=== PATIENT | female | born 1990 | race African-American/Black ===

== ENCOUNTER 2019-03-01 19:05 | Emergency (ER) | payer MEDICAID ==
[~2019-03-01] VITALS: Ht 154.9 cm; Wt 61.2 kg
[2019-03-01] MEDS ORDERED: NKM (19:16)
--- NOTE | 2019-03-01 19:37 | NUR ---
ED Nurse Note: pt came to ed from home c/o L arm tingling and chest pain for 1 week. per pt she has taken ASA 81 mg but it did not help
[2019-03-01 19:40] VITALS: BP 133/86
--- NOTE | 2019-03-01 19:52 | Emergency Room Report ---
History of Present Illness General Chief Complaint: Chest Pain Source: Patient Present Illness HPI This is a 28-year-old female who is otherwise healthy, complains of intermittent left-sided chest pain that has been going on for several days. Exacerbated by exertion. By rest. Exacerbated by movement as well. She denies any shortness of breath. She denies any nausea or vomiting or diaphoresis. She describes as a dull pain that is pressure like in sensation Allergies: Coded Allergies: No Known Allergies (Unverified , 03/01/19) Patient History Past Medical History: none Past Surgical History: none Pertinent Family History: none Nursing Documentation-[facility] Past Medical History: No Stated History Review of Systems All Other Systems: negative except mentioned in HPI Physical Exam Vital Signs Date Time Temp Pulse Resp B/P (MAP) Pulse Ox O2 Delivery O2 Flow Rate FiO2 03/01/19 19:13 99.1 81 16 133/86 95 Room Air General Appearance: well appearing, no apparent distress Head: normocephalic, atraumatic ENT: hearing grossly normal, normal voice Neck: full range of motion, supple Respiratory: no respiratory distress, speaking full sentences Cardiovascular #1: normal inspection, regular rate, rhythm, no JVD, no murmur, no rub Gastrointestinal: normal inspection, non tender, soft Musculoskeletal: no calf tenderness Neurologic: alert, normal gait Psychiatric: normal inspection, mood/affect normal Skin: no rash Medical Decision Making Diagnostic Impression: Primary Impression: Chest pain ER Course Patient was emergently seen and evaluated. Multiple bedside evaluation was done. Patient is nontoxic-appearing. No other associated symptoms. The patient has no tachypnea, tachycardia, pulmonary embolism. I pretest probability was very low. I do not suspect that the patient has a pulmonary embolism. EKG was normal. Blood work showed reviewed. My suspicion is that there may be some underlying anxiety. We will start the patient on Xanax which may offer some relief. And she should return sooner if is any change in symptoms or worsening symptoms. Laboratory Tests Test 03/01/19 19:50 White Blood Count 8.0 K/UL (4.8-10.8) Red Blood Count 5.25 M/UL (4.20-5.40) Hemoglobin 13.6 G/DL (12.0-16.0) Hematocrit 41.1 % (37.0-47.0) Mean Corpuscular Volume 78 FL (80-99) L Mean Corpuscular Hemoglobin 25.9 PG (27.0-31.0) L Mean Corpuscular Hemoglobin Concent 33.1 G/DL (32.0-36.0) Red Cell Distribution Width 12.3 % (11.6-14.8) Platelet Count 279 K/UL (150-450) Mean Platelet Volume 5.5 FL (6.5-10.1) L Neutrophils (%) (Auto) 53.0 % (45.0-75.0) Lymphocytes (%) (Auto) 35.2 % (20.0-45.0) Monocytes (%) (Auto) 7.9 % (1.0-10.0) Eosinophils (%) (Auto) 2.6 % (0.0-3.0) Basophils (%) (Auto) 1.3 % (0.0-2.0) D-Dimer 0.25 mg/L FEU (0.00-0.49) Sodium Level 139 MMOL/L (136-145) Potassium Level 3.4 MMOL/L (3.5-5.1) L Chloride Level 102 MMOL/L (98-107) Carbon Dioxide Level 26 MMOL/L (21-32) Anion Gap 11 mmol/L (5-15) Blood Urea Nitrogen 12 mg/dL (7-18) Creatinine 1.0 MG/DL (0.55-1.30) Estimate Glomerular Filtration Rate > 60 mL/min (>60) Glucose Level 89 MG/DL (74-106) Calcium Level 9.2 MG/DL (8.5-10.1) Total Bilirubin 0.9 MG/DL (0.2-1.0) Aspartate Amino Transferase (AST) 20 U/L (15-37) Alanine Aminotransferase (ALT) 20 U/L (12-78) Alkaline Phosphatase 61 U/L (46-116) Troponin I 0.000 ng/mL (0.000-0.056) Total Protein 7.9 G/DL (6.4-8.2) Albumin 4.1 G/DL (3.4-5.0) Globulin 3.8 g/dL Albumin/Globulin Ratio 1.1 (1.0-2.7) Human Chorionic Gonadotropin, Quant < 1 mIU/mL (1-6) L EKG Diagnostic Results EKG Time: 19:52 Rate: normal Rhythm: NSR ST Segments: no acute changes Last Vital Signs Date Time Temp Pulse Resp B/P (MAP) Pulse Ox O2 Delivery O2 Flow Rate FiO2 03/01/19 19:40 99.1 96 16 133/86 95 Room Air Status: improved Disposition: HOME, SELF-CARE Scripts Alprazolam* (XANAX*) 0.25 Mg Tablet 0.25 MG ORAL BID PRN for For Anxiety, #10 TAB Prov: JOAQUIM GROVER 03/01/19 Patient Instructions: Nonspecific Chest Pain JOAQUIM GROVER Mar 01, 2019 19:52
[2019-03-01 20:01] LABS: BASOPHILS % (AUTO) 1.3 % (0.0-2.0); EOSINOPHILS % (AUTO) 2.6 % (0.0-3.0); HEMATOCRIT 41.1 % (37.0-47.0); HEMOGLOBIN 13.6 G/DL (12.0-16.0); LYMPHOCYTES % (AUTO) 35.2 % (20.0-45.0); MEAN CORPUSCULAR VOLUME 78 FL (80-99); MONOCYTES % (AUTO) 7.9 % (1.0-10.0); PLATELET COUNT 279 K/UL (150-450); RED BLOOD COUNT 5.25 M/UL (4.20-5.40); RED CELL DISTRIBUTION WIDTH 12.3 % (11.6-14.8)
--- NOTE | 2019-03-01 20:09 | NUR ---
ED Nurse Note: pt left for xray
[2019-03-01 20:12] LABS: ANION GAP 11 mmol/L (5-15); BLOOD UREA NITROGEN 12 mg/dL (7-18); CALCIUM 9.2 MG/DL (8.5-10.1); CARBON DIOXIDE 26 MMOL/L (21-32); CHLORIDE 102 MMOL/L (98-107); POTASSIUM 3.4 MMOL/L (3.5-5.1); SODIUM 139 MMOL/L (136-145)
[2019-03-01 20:17] LABS: ALANINE AMINOTRANSFERASE 20 U/L (12-78); ALBUMIN 4.1 G/DL (3.4-5.0); ALBUMIN/GLOBULIN RATIO 1.1 (1.0-2.7); ALKALINE PHOSPHATASE 61 U/L (46-116); ASPARTATE AMINO TRANSFERASE 20 U/L (15-37); BILIRUBIN,TOTAL 0.9 MG/DL (0.2-1.0)
[2019-03-01 20:57] VITALS: BP 122/87
[2019-03-01] MEDS ORDERED: ALPRAZOLAM0.25 MG ORAL (21:13)
--- NOTE | 2019-03-01 21:26 | NUR ---
ER DISCHARGE NOTE: Patient is cleared to be discharged per ERMD, pt is aox4, on room air, with stable vital signs. pt was given dc and prescription instructions, pt was able to verbalize understanding, pt id band and iv site removed without complications. pt is able to ambulate with steady gait. pt took all belongings.
[2019-03-01 21:33] VITALS: BP 122/87
--- NOTE | 2019-03-02 10:43 | Diagnostic Imaging Report ---
Indication: Chest pain Technique: 2 views of the chest Comparison: None Findings: Lungs and pleural spaces are clear. The heart size is normal. The bones are unremarkable. No significant interim change. Impression: Negative
== END 2019-03-01 21:26 | disposition home or self-care (01) ==
LOC: EMR 19:56
DX: R07.9 Chest pain, unspecified (principal)
CPT/HCPCS: 36415; 71046; 80053; 84484; 84702; 85025; 85379; 99283

== ENCOUNTER 2019-09-22 19:56 | Emergency (ER) | payer MEDICAID ==
[~2019-09-22] VITALS: Ht 157.5 cm; Wt 64.9 kg
[~2019-09-22 19:56] MED LIST: ALPRAZOLAM0.25 MG ORAL; NKM
[2019-09-22 20:03] VITALS: BP 114/71
--- NOTE | 2019-09-22 20:03 | NUR ---
ED Nurse Note: Patient walked in to ER c/o no bowel movement x 5 days S/P breast augmentation last 09/20/19. As per patient she is taking norco and tried to take OTC medications for constipation. Afebrile. Denies nausea and vomiting.
--- NOTE | 2019-09-22 20:20 | NUR ---
ED Nurse Note: IV line established. Blood and urine collected and sent to lab.
--- NOTE | 2019-09-22 20:20 | Emergency Room Report ---
History of Present Illness General Chief Complaint: Constipation Source: Patient Present Illness HPI Disclaimer: Please note that this report is being documented using [employer] technology. This can lead to erroneous entry secondary to incorrect interpretation by the dictating instrument. HPI: 28-year-old female presents for evaluation of constipation. The patient had a breast augmentation surgery at a different hospital approximately 5 days ago. She was discharged with narcotic pain medication but no bowel regimen. She says she was doubling up on her narcotic pain medications due to significant pain. She states she has not had a bowel movement in 5 days and has not passed gas in 4 days. Continues to pass urine without difficulty. Denies vomiting but reports some nausea and increased belching. Denies fevers, chills, chest pain. Otherwise wounds are healing well. No intra-abdominal surgeries but she has had an abdominoplasty. She has used milk of magnesia, MiraLAX, docusate and a fleets enema at home without significant improvement. PMH: Denies PSH: Abdominoplasty, breast augmentation Allergies: Denies Social Hx: Denies drug or alcohol abuse Allergies: Coded Allergies: No Known Allergies (Unverified , 09/22/19) Patient History Last Menstrual Period: IUD Now: No Nursing Documentation-PMH Past Medical History: No Stated History Review of Systems All Other Systems: negative except mentioned in HPI Physical Exam Vital Signs Date Time Temp Pulse Resp B/P (MAP) Pulse Ox O2 Delivery O2 Flow Rate FiO2 09/22/19 20:00 98.8 121 18 114/71 (85) 98 Room Air General: Awake and alert, no acute distress HEENT: NC/AT. EOMI. Chest wall: Surgical scars are clean dry and intact. Cardiovascular: Tachycardic. S1 and S2 normal. No murmur appreciated Resp: Normal work of breathing. No cough, wheezing or crackles appreciated Abdomen: Abdomen is soft, moderately distended. Tender to palpation particularly in the upper quadrants in the periumbilical region. Less tenderness in the lower quadrants. Skin: Intact. No abrasions, laceration or rash over the exposed skin MSK: Normal tone and bulk. Moving all extremities. No obvious deformity. Neuro: Awake and alert. Mentating appropriately. Medical Decision Making Diagnostic Impression: Primary Impression: Ileus ER Course 28-year-old female presents for evaluation of severe constipation now no longer passing gas for the past 4 days 5 days after a surgery. Biggest concern at this time is for postsurgical ileus versus obstruction versus electrolyte abnormality versus volvulus versus impaction. Will draw labs and obtain x-rays of the abdomen. Laboratory Tests Test 09/22/19 20:24 White Blood Count 9.8 K/UL (4.8-10.8) Red Blood Count 5.40 M/UL (4.20-5.40) Hemoglobin 14.0 G/DL (12.0-16.0) Hematocrit 42.2 % (37.0-47.0) Mean Corpuscular Volume 78 FL (80-99) L Mean Corpuscular Hemoglobin 25.9 PG (27.0-31.0) L Mean Corpuscular Hemoglobin Concent 33.1 G/DL (32.0-36.0) Red Cell Distribution Width 10.9 % (11.6-14.8) L Platelet Count 273 K/UL (150-450) Mean Platelet Volume 6.3 FL (6.5-10.1) L Neutrophils (%) (Auto) 75.5 % (45.0-75.0) H Lymphocytes (%) (Auto) 12.5 % (20.0-45.0) L Monocytes (%) (Auto) 9.0 % (1.0-10.0) Eosinophils (%) (Auto) 2.4 % (0.0-3.0) Basophils (%) (Auto) 0.6 % (0.0-2.0) Sodium Level 140 MMOL/L (136-145) Potassium Level 3.9 MMOL/L (3.5-5.1) Chloride Level 103 MMOL/L (98-107) Carbon Dioxide Level 28 MMOL/L (21-32) Anion Gap 10 mmol/L (5-15) Blood Urea Nitrogen 8 mg/dL (7-18) Creatinine 0.9 MG/DL (0.55-1.30) Estimate Glomerular Filtration Rate > 60 mL/min (>60) Glucose Level 90 MG/DL (74-106) Calcium Level 9.3 MG/DL (8.5-10.1) Total Bilirubin Pending Aspartate Amino Transferase (AST) Pending Alanine Aminotransferase (ALT) Pending Alkaline Phosphatase Pending Total Protein Pending Albumin Pending Globulin Pending Other X-Ray Diagnostic Results Other X-Ray Diagnostic Results : X-Ray ordered: Abdominal # of Views/Limited Vs Complete: 1 View Indication: Pain EP Interpretation: Yes Interpretation: other - Dilated loops of small bowel. Significant stool in the colon Impression: Other - Possible ileus versus impaction Electronically Signed by: Electronically signed by Dr. Navin Carl Reevaluation Time: 20:58 Last Vital Signs Date Time Temp Pulse Resp B/P (MAP) Pulse Ox O2 Delivery O2 Flow Rate FiO2 09/22/19 20:00 98.8 121 18 114/71 (85) 98 Room Air Reevaluation Impression X-rays show some dilated loops of small bowel which may represent obstruction versus early ileus. There is also significant stool in the colon. Will obtain a fleets enema to get the patient to have a bowel movement and if successful can follow-up as an outpatient with her surgeon at her already scheduled appointment in 2 days. If not can advance work-up as needed. Labs are within normal limits. Patient was signed out to Dr. Sheehan pending reevaluation after enema. Disposition: HOME, SELF-CARE Condition: Stable Navin Carl MD Sep 22, 2019 20:20
--- NOTE | 2019-09-22 20:32 | NUR ---
ED Nurse Note: Pt taken for Xray.
--- NOTE | 2019-09-22 20:41 | NUR ---
ED Nurse Note: Pt came back from Xray.
[2019-09-22 20:43] LABS: BASOPHILS % (AUTO) 0.6 % (0.0-2.0); EOSINOPHILS % (AUTO) 2.4 % (0.0-3.0); HEMATOCRIT 42.2 % (37.0-47.0); LYMPHOCYTES % (AUTO) 12.5 % (20.0-45.0); MEAN CORPUSCULAR VOLUME 78 FL (80-99); NEUTROPHILS % (AUTO) 75.5 % (45.0-75.0); PLATELET COUNT 273 K/UL (150-450); RED CELL DISTRIBUTION WIDTH 10.9 % (11.6-14.8); WHITE BLOOD COUNT 9.8 K/UL (4.8-10.8)
--- NOTE | 2019-09-22 20:50 | Diagnostic Imaging Report ---
EXAM: XR Abdomen, 2 Views CLINICAL HISTORY: ABD DIST TECHNIQUE: Frontal view of the abdomen pelvis with upright view of the abdomen. COMPARISON: No relevant prior studies available. FINDINGS: Intraperitoneal space: No free air. Gastrointestinal tract: Mildly prominent loops of small bowel within the mid abdomen with multiple fluid levels. Prominent gastric bubble versus gas filled colon in the left upper quadrant. Organs: IUD in the uterus. Bones joints: Unremarkable. IMPRESSION: Mildly prominent loops of small bowel within the mid abdomen with air fluid levels. If there is concern for obstruction consider CT.
[2019-09-22 20:54] LABS: ANION GAP 10 mmol/L (5-15); BLOOD UREA NITROGEN 8 mg/dL (7-18); CALCIUM 9.3 MG/DL (8.5-10.1); CARBON DIOXIDE 28 MMOL/L (21-32); CHLORIDE 103 MMOL/L (98-107); CREATININE 0.9 MG/DL (0.55-1.30); POTASSIUM 3.9 MMOL/L (3.5-5.1); SODIUM 140 MMOL/L (136-145)
[2019-09-22 21:00] LABS: ALANINE AMINOTRANSFERASE 25 U/L (12-78); ALBUMIN 3.9 G/DL (3.4-5.0); ALBUMIN/GLOBULIN RATIO 0.9 (1.0-2.7); ALKALINE PHOSPHATASE 59 U/L (46-116); ASPARTATE AMINO TRANSFERASE 40 U/L (15-37); BILIRUBIN,TOTAL 0.8 MG/DL (0.2-1.0)
[2019-09-22] MEDS ORDERED: Fleet's Enema 133ml RECTAL ONE (21:00)
[2019-09-22 22:10] VITALS: BP 121/75
--- NOTE | 2019-09-22 22:10 | NUR ---
ED Nurse Note: Pt cleared by ERMD for discharge. DC instructions was given and explained to pt and verbalized understanding of teachings. All medical deviecs such as ID band removed. Pt is AAO x4, ambulatory and left with all personal belongings. Accompanied by her .
== END 2019-09-22 22:10 | disposition home or self-care (01) ==
LOC: EMR 20:34
DX: K56.7 Ileus, unspecified (principal); Z98.82 Breast implant status
CPT/HCPCS: 36415; 74018; 80053; 85025; Z7502; 99284

== ENCOUNTER 2020-09-09 08:07 | Emergency (ER) | payer MEDICAID, OTHER ==
[~2020-09-09] VITALS: Ht 154.9 cm; Wt 65.8 kg
[~2020-09-09 08:07] MED LIST changes: +AFRIN NASAL SPR30 ML NASAL; +ALBUTEROL SULF8.5 GM INH; +CHLOR-TRIMETON4 MG PO; +GUAIFENESIN-CO118 M1 ORAL; +IBUPROFEN600 MG ORAL
[2020-09-09 08:33] VITALS: BP 112/77
--- NOTE | 2020-09-09 08:34 | NUR ---
ED Nurse Note:pt. came with c/o sore throat no fever
--- NOTE | 2020-09-09 08:35 | Emergency Room Report ---
History of Present Illness General Chief Complaint: Sore Throat Source: Patient Present Illness HPI Disclaimer: Please note that this report is being documented using [employer] technology. This can lead to erroneous entry secondary to incorrect interpretation by the dictating instrument. HPI: 29-year-old female presents with sore throat. She states she has had a sore throat for the past 4 days or so. She was exposed to a sick contact in her daughter. She denies any fevers nausea vomiting or diarrhea. Pain is 8 out of 10 and worse with swallowing. She has been tolerating oral intake. Patient also complained of intermittent urinary frequency. PMH: Patient denies any medical history Allergies: Coded Allergies: No Known Allergies (Unverified , 09/22/19) COVID-19 Screening Contact w/high risk pt: No Experienced COVID-19 symptoms?: No COVID-19 Testing performed [employer]GEANT: No Patient History Last Menstrual Period: IUD Reviewed Nursing Documentation: PMH: Agreed; PSxH: Agreed Nursing Documentation-PMH Past Medical History: No Stated History Review of Systems All Other Systems: negative except mentioned in HPI Physical Exam Vital Signs Date Time Temp Pulse Resp B/P (MAP) Pulse Ox O2 Delivery O2 Flow Rate FiO2 09/09/20 08:10 97.9 86 16 112/77 (89) 100 Room Air Sp02 EP Interpretation: reviewed, normal General Appearance: well appearing, no apparent distress Head: normocephalic, atraumatic Eyes: bilateral eye PERRL, bilateral eye EOMI ENT: hearing grossly normal, moist mucus membranes, tonsillar exudate - Tonsillar exudates noted bilaterally Neck: full range of motion, supple, other - Anterior cervical adenopathy noted Respiratory: lungs clear, normal breath sounds, no rhonchi, no respiratory distress, no retraction, no wheezing Cardiovascular #1: normal peripheral pulses, regular rate, rhythm, no murmur Gastrointestinal: non tender, soft, non-distended, no guarding, other - No splenomegaly noted Neurologic: alert, oriented x3, no focal defects Skin: normal color, warm/dry Medical Decision Making Diagnostic Impression: Primary Impression: Acute pharyngitis ER Course MDM: Differential included viral pharyngitis strep pharyngitis mononucleosis, UTI to name a few Clinical course-urinalysis was sent. Patient did have bilateral exudates noted, adenopathy. She also reported a dry cough but due to her exudates with adenopathy I will treat for presumed strep. No splenomegaly noted. Does have sick contacts in her daughter. Patient complained of intermittent urinary symptoms so urinalysis was sent. Urinalysis with 1+ leukocytes squamous cells and bacteria. Possibly contaminated specimen however patient did have intermittent symptoms. I plan to treat her pharyngitis with Keflex which will also cover possible UTI. She was nontoxic stable for discharge. Labs - Laboratory Tests Test 09/09/20 08:10 Urine Color Yellow Urine Appearance Slightly cloudy Urine pH 6.5 (4.5-8.0) Urine Specific [place] 1.010 (1.005-1.035) Urine Protein Negative (NEGATIVE) Urine Glucose (UA) Negative (NEGATIVE) Urine Ketones Negative (NEGATIVE) Urine Blood Negative (NEGATIVE) Urine Nitrite Negative (NEGATIVE) Urine Bilirubin Negative (NEGATIVE) Urine Urobilinogen 1 MG/DL (0.0-1.0) H Urine Leukocyte Esterase 1+ (NEGATIVE) H Urine RBC 0-2 /HPF (0 - 2) Urine WBC 0-2 /HPF (0 - 2) Urine Squamous Epithelial Cells Many /LPF (NONE/OCC) H Urine Bacteria Few /HPF (NONE) Last Vital Signs Date Time Temp Pulse Resp B/P (MAP) Pulse Ox O2 Delivery O2 Flow Rate FiO2 09/09/20 08:10 97.9 86 16 112/77 (89) 100 Room Air Disposition: HOME, SELF-CARE Condition: Stable Scripts Acetaminophen* (TYLENOL EXTRA STRENGTH*) 500 Mg Tablet 500 MG ORAL Q8H PRN for Prn Headache/Temp > 101, #30 TAB 0 Refills Prov: Cyril Hu M.D. 09/09/20 Cephalexin* (KEFLEX*) 500 Mg Capsule 500 MG ORAL EVERY 8 HOURS, #21 CAP 0 Refills Prov: Cyril Hu M.D. 09/09/20 Cyril Hu M.D. Sep 09, 2020 08:35
[2020-09-09 08:39] LABS: APPEARANCE,URINE SLIGHTLY CLOUDY; BILIRUBIN, URINE NEGATIVE (NEGATIVE); GLUCOSE, URINE (UA) NEGATIVE (NEGATIVE); KETONES,URINE NEGATIVE (NEGATIVE); LEUKOCYTE ESTERASE ,URINE 1+ (NEGATIVE); NITRITE,URINE NEGATIVE (NEGATIVE); PH,URINE 6.5 (4.5-8.0); PROTEIN,URINE NEGATIVE (NEGATIVE); UROBILINOGEN,URINE 1 MG/DL (0.0-1.0)
[2020-09-09 08:43] LABS: COLOR,URINE YELLOW
[2020-09-09] MEDS ORDERED: TYLENOL EXTRA500 MG ORAL (08:49)
[2020-09-09] MEDS ORDERED: CEPHALEXIN500 MG ORAL (08:49)
[2020-09-09 08:54] VITALS: BP 112/77
--- NOTE | 2020-09-09 08:55 | NUR ---
ED Nurse Note: Pt cleared by health care Provider for discharge. DC instructions/prescription was given and explained to pt and verbalized understanding of teachings. All medical deviecs such as ID band removed. Pt is AAO x4, ambulatory and left with all personal belongings.
== END 2020-09-09 08:55 | disposition home or self-care (01) ==
LOC: EMR 08:20
DX: J02.9 Acute pharyngitis, unspecified (principal); Z97.5 Presence of (intrauterine) contraceptive device
CPT/HCPCS: 81003; Z7502; 99282

== ENCOUNTER 2020-09-21 10:23 | Emergency (ER) | payer MEDICAID ==
[~2020-09-21] VITALS: Ht 154.9 cm; Wt 65.8 kg
[~2020-09-21 10:23] MED LIST changes: +CEPHALEXIN500 MG ORAL; +TYLENOL EXTRA500 MG ORAL
[2020-09-21 10:40] VITALS: BP 119/74
--- NOTE | 2020-09-21 10:40 | NUR ---
ED Nurse Note: Pt walked in c/o sore throat, cough, and chest discomfort x 2 weeks. Respirations even and unlabored on room air. A+Ox4, speaking in complete sentences. Vitals stable as documented.
[2020-09-21] MEDS ORDERED: Lidocaine 2% Visc 15ml soln ORAL ONE (10:45)
--- NOTE | 2020-09-21 10:46 | Emergency Room Report ---
History of Present Illness General Chief Complaint: Sore Throat Source: Patient Present Illness HPI Patient is a 29-year-old female denies any significant past medical history who presents to the ER complaining of URI symptoms and throat pain. Patient states that her symptoms started 2 weeks ago with intermittent fevers, cough, throat pain. Patient denies any chills. She denies any chest pain or shortness of breath. She denies any abdominal pain, nausea or vomiting. Patient does have family members at home who are also sick. Patient states that she was seen here and diagnosed with strep throat. Patient states that she only took 3 days of her medications and then lost it. She denies any neck stiffness, drooling or changes to her voice. She denies any rash or altered mental status. Patient's daughter is also here for sore throat. Allergies: Coded Allergies: No Known Allergies (Unverified , 09/22/19) COVID-19 Screening Contact w/high risk pt: No Experienced COVID-19 symptoms?: Yes COVID-19 Testing performed THREAD WINDER: No Patient History Reviewed Nursing Documentation: PMH: Agreed; PSxH: Agreed Nursing Documentation-PMH Past Medical History: No Stated History Review of Systems All Other Systems: negative except mentioned in HPI Physical Exam Vital Signs Date Time Temp Pulse Resp B/P (MAP) Pulse Ox O2 Delivery O2 Flow Rate FiO2 09/21/20 10:37 98.4 72 20 110/78 (89) 96 Room Air Sp02 EP Interpretation: reviewed, normal General Appearance: no apparent distress, alert, GCS 15, non-toxic Head: normocephalic, atraumatic Eyes: bilateral eye normal inspection, bilateral eye PERRL ENT: normal voice, uvula midline, other - Tonsillar erythema no tonsillar exudate or swelling Neck: full range of motion, no meningismus, supple/symm/no masses Respiratory: chest non-tender, lungs clear, normal breath sounds, speaking full sentences Cardiovascular #1: regular rate, rhythm, no edema Gastrointestinal: normal bowel sounds, non tender, soft, non-distended, no guarding, no rebound Rectal: deferred Musculoskeletal: no calf tenderness, moves extm spontaneously Neurologic: silk screen painter III-XII nml as tested, oriented x3 Psychiatric: no suicidal/homicidal ideation Skin: no rash Lymphatic: no adenopathy Medical Decision Making Diagnostic Impression: Primary Impression: Acute pharyngitis ER Course Patient has pharyngitis. She has no neck stiffness, altered mental status or difficulty swallowing. Patient was treated for 3 days with antibiotics but lost her medications. We will treat patient with azithromycin. After discussing risks and benefits of further diagnostics, treatment plans, as well as indications for and risks of admission, the patient is agreeable to being discharged home. I have explained that their evaluation and treatment in the emergency department today is an important step towards them achieving better health but that their evaluation today is not intended to replace further evaluation and treatment by a physician in their local clinic. I have explained that while the current findings suggest no immediate life threatening emergency they will require further evaluation and treatment by a physician of their choice in their area. They understand that it will be necessary for them to review the final reports of their ED visit with their clinic physician. We have reviewed indications for return to the Emergency Department. I have explained that additional time may need to pass and/or additional testing as an outpatient may be necessary before a definitive diagnosis can be made. They tell me they are willing to follow up as instructed within the timeframe I recommend. They appear to understand what we discussed. Additionally they understand that if they are unable to be seen by an outpatient physician they are welcome, and in fact should, return to the Emergency Department for a repeat evaluation. The patient is stable at time of discharge. Microbiology Date/Time Source Procedure Growth Status 09/21/20 11:10 Nasal Nares - Final Complete 09/21/20 11:10 Nasal Nares - Final Complete 09/21/20 11:10 Nasopharynx SARS-CoV-2 RdRp Gene Assay - Final Complete Chest X-Ray Diagnostic Results Chest X-Ray Diagnostic Results : Chest X-Ray Ordered: Yes # of Views/Limited/Complete: 1 View Indication: Other - cough EP Interpretation: Yes Interpretation: no consolidation, no effusion, no pneumothorax, no acute cardiopulmonary disease Impression: No acute disease Electronically Signed by: Charmaine Raphael MD Last Vital Signs Date Time Temp Pulse Resp B/P (MAP) Pulse Ox O2 Delivery O2 Flow Rate FiO2 09/21/20 10:37 98.4 72 20 110/78 (89) 96 Room Air Disposition: HOME, SELF-CARE Condition: Stable Scripts Azithromycin* (ZITHROMAX*) 250 Mg Tablet 250 MG ORAL DAILY, #6 TAB 0 Refills Take two tables once daily for 1 day, then one tablet once daily for 4 days. Prov: Charmaine Raphael M.D. 09/21/20 Additional Instructions: The patient was provided with discharge instructions, notified to follow-up with a primary care doctor and or specialist in the next 24-48 hours, and to return to the ED if they have worsening of their symptoms. Please note that this report is being documented using [employer] technology. This can lead to erroneous entry secondary to incorrect interpretation by the dictating instrument. Charmaine Raphael M.D. Sep 21, 2020 10:46
--- NOTE | 2020-09-21 11:53 | Diagnostic Imaging Report ---
EXAM: XR Chest, 1 View CLINICAL HISTORY: COUGH TECHNIQUE: Frontal view of the chest. COMPARISON: Chest radiograph on 03/01/2019 FINDINGS: Hardware: None. Lungs/pleura: Overlying soft tissue density in the mid and lower lungs. No focal consolidation. No pleural effusion or pneumothorax. Heart/mediastinum: Normal. No cardiomegaly. Soft tissues: Unremarkable. Bones: No acute fracture. Upper abdomen: Normal. IMPRESSION: No acute disease identified.
[2020-09-21] MEDS ORDERED: ZITHROMAX250 MG ORAL (12:17)
[2020-09-21 12:36] VITALS: BP 125/71
== END 2020-09-21 12:36 | disposition home or self-care (01) ==
LOC: EMR 12:36
DX: J02.9 Acute pharyngitis, unspecified (principal)
CPT/HCPCS: 71045; 86710; U0002; Z7502; 99283